=== PATIENT | female | born 1960 | race Caucasian/White ===

== ENCOUNTER → 2017-10-12 11:40 | Outpatient (CLI) | payer BC, MEDICARE, SELFPAY ==
--- NOTE | 2017-10-12 11:49 | XR_ITS ---
XR knee RT 3V HISTORY: ITS.REASON: RT KNEE PAIN ORDERING PHYSICIAN: Nayana Goldberg PATIENT AGE: 57 years COMPARISON: None FINDINGS: There is a linear area of sclerosis involving the intramedullary region of the distal femur and could be a prior intramedullary parvez tract.. There is transverse slight increased density in the distal femur probably related to prior screw hole artifact. There is very slight decrease in the joint space medially which may be seen with early osteoarthritis. The knee otherwise has an unremarkable appearance. IMPRESSION: 1. Slight decrease in joint space medially suggesting minimal osteoarthritis. 2. Probable old intramedullary parvez tract in the distal femur
--- NOTE | 2017-10-12 11:49 | XR_ITS ---
XR knee LT 3V HISTORY: ITS.REASON: LEFT KNEE PAIN ORDERING PHYSICIAN: Nayana Goldberg PATIENT AGE: 57 years COMPARISON: None FINDINGS: No fracture or dislocation. No lytic or blastic change. Normal mineralization. No significant arthritic changes evident. No other significant findings IMPRESSION: Negative Knee
== END ==
PROVIDERS: PCP Pediatrics; Visit Provider Nurse Practitioner Family
DX: M25.561 Pain in right knee (principal); M25.562 Pain in left knee
CPT/HCPCS: 73562

== ENCOUNTER → 2017-10-31 13:58 | Outpatient (CLI) | payer BC, SELFPAY ==
--- NOTE | 2017-10-31 14:05 | XR_ITS ---
XR wrist RT 2V HISTORY ITS.REASON: RT WRIST PAIN ORDERING PHYSICIAN: Dheeraj Franklin PATIENT AGE: 57 years Comparison: None FINDINGS: No fracture or dislocation. No lytic or blastic change. There is normal mineralization.. The joint spaces are well-preserved. No significant degenerative/arthritic changes. No erosive changes evident.. Bony hypertrophic changes are present involving the mid aspect of the radius and could be due to an old injury. Please correlate clinically. IMPRESSION: 1. Negative right wrist. 2. Suspect old midshaft radial fracture
== END ==
PROVIDERS: PCP Pediatrics; Visit Provider Pediatrics
DX: M25.531 Pain in right wrist (principal)
CPT/HCPCS: 73100

== ENCOUNTER → 2018-01-31 09:21 | Outpatient (CLI) | payer BC, SELFPAY ==
--- NOTE | 2018-01-31 09:25 | US_ITS ---
US liver HISTORY: ITS.REASON: LIVER MASS ORDERING PHYSICIAN: Lc Corbett MD PATIENT AGE: 57 years COMPARISON: None FINDINGS: INDICATION is liver mass seen on outside MRI which is not available for review at the time of this reading. Addendum may be added if that exam or report is made available. There is an oval subcapsular fluid collection in the right hepatic lobe measuring 2 x 3.5 cm have an a cystic appearance. No other liver lesions are evident. The common bile duct is slightly prominent at 7 mm. Patient however has had a prior cholecystectomy. There is appropriate directional blood flow within the portal vein. Images of the right kidney are unremarkable. IMPRESSION: Subcapsular cystic fluid collection at 3.5 x 2.2 cm in the right hepatic lobe laterally. This could be due to a subcapsular cyst or even resolving hematoma.
== END ==
PROVIDERS: Family Provider Pediatrics; PCP Pediatrics; Visit Provider Surgery
DX: R16.0 Hepatomegaly, not elsewhere classified (principal)
CPT/HCPCS: 76705

== ENCOUNTER → 2018-10-17 13:40 | Outpatient (CLI) | payer MEDICARE, BC, SELFPAY ==
--- NOTE | 2018-10-17 13:48 | XR_ITS ---
XR ribs LT min 3V w CXR1V HISTORY: Fall with left-sided chest rib pain ITS.REASON: CONTUSION LT SIDE S/P FALL ORDERING PHYSICIAN: Navi Hines MD PATIENT AGE: 58 years Comparison: None FINDINGS: A frontal view of the chest shows no acute finding. Multiple views of the Left ribs were obtained. No acute fracture or dislocation. No lytic or blastic change. There are old fractures of the left seventh ribs laterally. Bone plate is present along the lower cervical spine. IMPRESSION: No acute fracture apparent. If pain persists, consider follow-up exam in 7-[address] with 3-D reformats.
== END ==
PROVIDERS: PCP Family Medicine; Visit Provider Family Medicine
DX: S20.212A Contusion of left front wall of thorax, initial encounter (principal)
CPT/HCPCS: 71101

== ENCOUNTER → 2018-12-19 14:31 | Outpatient (CLI) | payer MEDICARE, BC, SELFPAY ==
--- NOTE | 2018-12-19 14:41 | XR_ITS ---
XR humerus LT CLINICAL INDICATION: Follow-up fracture ITS.REASON: patient needs to be standing; humerus fx ORDERING PHYSICIAN: George Mckeon MD PATIENT AGE: 58 years Comparison: 12/08/2018 FINDINGS: There is a cast present in the superior aspect of the cast is at the medial region. There is a complete mid shaft humeral fracture which is displaced. There is 17 mm anterior and 14 mm medial displacement of the distal fracture fragment. There is 0% bony apposition and no callous formation. IMPRESSION: Nondisplaced mid shaft humeral fracture
== END ==
PROVIDERS: PCP Family Medicine; Visit Provider Orthopaedic Surgery
DX: S42.302A Unspecified fracture of shaft of humerus, left arm, initial encounter for closed fracture (principal)
CPT/HCPCS: 73060

== ENCOUNTER → 2018-12-26 13:56 | Outpatient (CLI) | payer MEDICARE, BC, SELFPAY ==
--- NOTE | 2018-12-26 13:59 | XR_ITS ---
PROCEDURE: XR HUMERUS LT CLINICAL INDICATION: left humerus fx; in cast; see comment follow-up fracture COMPARISON: None available FINDINGS: Complete transverse midshaft humeral fracture is noted with minimal medial angulation of the distal fracture fragment and minimal medial displacement of the distal fracture fragment. There is 1 centimeter anterior displacement of the distal fracture fragment IMPRESSION: Mildly displaced midshaft humeral fracture Dictated by: Indra Morley MD 12/26/2018 14:29 Signed by: <Electronically signed by Indra Morley MD in [place]> 12/26/2018 14:29
== END ==
PROVIDERS: PCP Family Medicine; Visit Provider Orthopaedic Surgery
DX: S42.302A Unspecified fracture of shaft of humerus, left arm, initial encounter for closed fracture (principal)
CPT/HCPCS: 73060

== ENCOUNTER → 2019-01-02 15:02 | Outpatient (CLI) | payer MEDICARE, BC, SELFPAY ==
--- NOTE | 2019-01-02 15:05 | XR_ITS ---
PROCEDURE: XR HUMERUS LT CLINICAL INDICATION: left humerus fracture; cam shell brace applied Pain, fracture COMPARISON: XR HUMERUS LT from 12/26/2018 FINDINGS: Mildly displaced midshaft humeral fracture once again noted with mild medial angulation and medial displacement of the distal fracture fragment. Callus formation is developing. There may be slightly greater medial displacement. IMPRESSION: Healing displaced midshaft humeral fracture Dictated by: Indra Morley MD 01/02/2019 15:29 Signed by: <Electronically signed by Indra Morley MD in [place]> 01/02/2019 15:29
== END ==
PROVIDERS: PCP Family Medicine; Visit Provider Orthopaedic Surgery
DX: S42.302A Unspecified fracture of shaft of humerus, left arm, initial encounter for closed fracture (principal)
CPT/HCPCS: 73060

== ENCOUNTER 2019-01-02 15:20 | Outpatient (RCR) | payer BC, MEDICARE, SELFPAY | END 2019-01-02 15:45 | disposition home or self-care (01) | LOC: PT 15:20 | PROVIDERS: Visit Provider Orthopaedic Surgery | DX: S42.302A Unspecified fracture of shaft of humerus, left arm, initial encounter for closed fracture (principal) ==

== ENCOUNTER → 2019-01-09 14:17 | Outpatient (CLI) | payer MEDICARE, BC, SELFPAY ==
--- NOTE | 2019-01-09 14:21 | XR_ITS ---
PROCEDURE: XR HUMERUS LT CLINICAL INDICATION: left humerus fracture Humerus fracture COMPARISON: XR HUMERUS LT from 01/02/2019 FINDINGS: There is a healing midshaft humeral fracture with mild medial angulation and 13 mm anterior displacement of the distal fracture fragment. Increasing callus formation is present. IMPRESSION: Healing mid shaft displaced humeral fracture Dictated by: Indra Morley MD 01/09/2019 17:06 Signed by: <Electronically signed by Indra Morley MD in [place]> 01/09/2019 17:06
== END ==
PROVIDERS: PCP Family Medicine; Visit Provider Orthopaedic Surgery
DX: S42.302A Unspecified fracture of shaft of humerus, left arm, initial encounter for closed fracture (principal)
CPT/HCPCS: 73060

== ENCOUNTER → 2019-01-23 13:29 | Outpatient (CLI) | payer MEDICARE, BC, SELFPAY ==
--- NOTE | 2019-01-23 13:35 | XR_ITS ---
PROCEDURE: XR HUMERUS LT CLINICAL INDICATION: follow up left humerus fracture COMPARISON: XR HUMERUS LT from 12/26/2018 XR HUMERUS LT from 01/02/2019 XR HUMERUS LT from 01/09/2019 FINDINGS: There is a healing mid shaft humeral fracture. There is overlying callus formation and mild medial angulation of the distal fracture fragment. There is anterior displacement of the distal fracture fragment by approximately 17 mm. IMPRESSION: Healing displaced midshaft humeral fracture not significantly changed Dictated by: Indra Morley MD 01/23/2019 14:40 Electronically signed by Indra Morley MD in [place] 01/23/2019 14:40
== END ==
PROVIDERS: PCP Family Medicine; Visit Provider Orthopaedic Surgery
DX: S42.302A Unspecified fracture of shaft of humerus, left arm, initial encounter for closed fracture (principal)
CPT/HCPCS: 73060

== ENCOUNTER → 2019-03-06 14:02 | Outpatient (CLI) | payer MEDICARE, BC, SELFPAY ==
--- NOTE | 2019-03-06 14:08 | XR_ITS ---
PROCEDURE: XR HUMERUS LT CLINICAL INDICATION: follow up left humerus fracture Follow-up fracture COMPARISON: XR HUMERUS LT from 12/26/2018 XR HUMERUS LT from 01/02/2019 XR HUMERUS LT from 01/09/2019 XR HUMERUS LT from 01/23/2019 FINDINGS: There is a healing mid shaft fracture involving the left humerus. There is mild medial angulation of the distal fracture fragment of 24 degrees. There is 13 mm anterior to medial displacement of the distal fracture fragment unchanged. Callus formation is increasing compared to the previous study. Other findings:None. IMPRESSION: Healing mid shaft humeral fracture with mild displacement and medial angulation of the distal fracture fragment Dictated by: Indra Morley MD 03/06/2019 15:55 Electronically signed by Indra Morley MD in [place] 03/06/2019 15:55
== END ==
PROVIDERS: PCP Family Medicine; Visit Provider Orthopaedic Surgery
DX: S42.302A Unspecified fracture of shaft of humerus, left arm, initial encounter for closed fracture (principal)
CPT/HCPCS: 73060

== ENCOUNTER → 2020-05-28 12:51 | Outpatient (CLI) | payer OTHER, SELFPAY ==
--- NOTE | 2020-05-28 12:54 | MR_ITS ---
PROCEDURE: MR LUMBAR SPINE WO CON CLINICAL INDICATION: LUMBAGO WITH SCIATICA hx lumbar surgery 2007. lt sided lbp with lt leg pain. x2wks. no injury. COMPARISON: CT LSWO CT LUMBAR SPINE W/O CONTRAST from 05/29/2015 TECHNIQUE: Standard multiplanar multiecho sequences are performed without contrast. 3-D MIP and myelographic images are also rendered and reviewed FINDINGS: There is normal alignment. The spinal cord ends at the L1 level. L1-L2: Unremarkable. L2-L3: Unremarkable. L3-L4: Unremarkable. L4-5: Bulging disc which is slightly eccentric toward the left with minimal left foraminal disc protrusion. There is mild facet and ligamentum hypertrophy with mild left lateral recess narrowing and moderate left-sided foraminal narrowing. There are postsurgical changes at this level with artifact at the spinous process region at L4 and L5. Please correlate with patient's type of surgical history. L5-S1: Unremarkable. There is patchy areas of increased T2 signal involving the sacrum on both the right and left aspect. This is incompletely imaged consistent with edema possibly due to insufficiency fractures. There is cortical irregularity involving the S2 segment superiorly. Increased T2 signal involves the inferior aspect of S1 and superior aspect of S2. This is suspicious for fracture the superior aspect of the S2 segment with some impaction. IMPRESSION: 1. Bulging disc at L4-5 which is slightly eccentric toward the left with minimal left foraminal disc protrusion. There is mild facet and ligamentum hypertrophy with mild left lateral recess narrowing and moderate left-sided foraminal narrowing. There are postsurgical changes at this level with artifact at the spinous process region at L4 and L5. Please correlate with patient's type of surgical history 2. There is patchy areas of increased T2 signal involving the sacrum on both the right and left aspect. This is incompletely imaged consistent with edema possibly due to insufficiency fractures. There is cortical irregularity involving the S2 segment superiorly. Increased T2 signal involves the inferior aspect of S1 and superior aspect of S2. This is suspicious for fracture the superior aspect of the S2 segment with some impaction. High-resolution CT of the sacrum and coccyx may provide further evaluation and confirm the presence of insufficiency fractures. Dictated by: Indra Morley MD 05/30/2020 08:36 Indra Morley MD in [place] 05/30/2020 08:36
== END ==
PROVIDERS: PCP Nurse Practitioner Family; Visit Provider Nurse Practitioner Family
DX: M54.42 Lumbago with sciatica, left side (principal); M54.41 Lumbago with sciatica, right side; Z98.890 Other specified postprocedural states
CPT/HCPCS: 72148; 76376

== ENCOUNTER → 2022-10-29 15:10 | Outpatient (CLI) | payer MEDICARE, SELFPAY ==
--- NOTE | 2022-10-29 15:15 | XR_ITS ---
FINAL REPORT CLINICAL HISTORY: 30lb unintentional weight loss over 3 mos. 0 chest complaints, hx asthma, smoker. COMPARISON: None FINDINGS: Two views of the chest were obtained. The heart size and pulmonary vascularity are within normal limits. The mediastinum is normal. There is hyperinflation of the lungs consistent with COPD. There is mild bronchitis. Mild scarring is noted at the left lung base.. There is no pneumothorax. The bony thorax is intact. There are postoperative changes in lower cervical spine. IMPRESSION: Mild bronchitis. Reviewed, Interpreted and Dictated by Nash Berg III, MD Transcribed by Linda Ruth Authenticated and [facility]
== END ==
LOC: RAD 15:10
PROVIDERS: PCP Internal Medicine; Visit Provider Internal Medicine
DX: F17.200 Nicotine dependence, unspecified, uncomplicated (principal)
CPT/HCPCS: 71046

== ENCOUNTER 2022-11-24 11:13 | Day surgery (SDC) | payer MEDICARE, SELFPAY ==
[2022-11-01 14:06] VITALS: BMI 14.3
[2022-11-24 12:15] VITALS: BP 135/63; PULSE 75; RESP 17; TEMP 36.6; O2SAT 96
--- NOTE | 2022-11-24 12:38 | [facility].SCOPE ---
Procedure: Date: 11/24/22 Patient Date of :: 1960 Procedure Performed:: Colonoscopy Indications:: Weight loss Performing Provider:: Sushil Reynolds MD Referring Provider:: Michael Serrano DO Sedation:: See RN records Procedure:: After placing the patient in the left lateral decubitus position, the colonoscopy was gently inserted into the rectum and under direct visualization advanced to the cecum which was identified by transillumination in the right lower quadrant, identification of the ileocecal valve, appendiceal orifice, and cecal strap. Color, texture, mucosa, and anatomy of the colon were carefully examined with the scope. Findings:: Anal canal: normal Rectum: hemorrhoids Sigmoid colon: diverticulosis Descending colon: normal without polyps or inflammatory changes Splenic flexure: normal Transverse colon: normal without polyps or inflammatory changes Hepatic flexure: normal Ascending colon: normal without polyps or inflammatory changes Cecum: normal Terminal ileum: not visualized Impression: Sigmoid diverticulosis The patient has a very tortuous colon. Most angulation was noted within the sigmoid colon. An EGD scope was used to complete procedure to cecum. Recommendations:: Higher fiber diet Follow up with referring provider Complications:: None Estimated blood obtained (mL): 0 Colonoscopy Component Colonoscopy Component Was a colonoscopy performed during today's procedure?: Yes Recommended follow up colonoscopy of at least 10 years?: Yes
[2022-11-24 13:29] VITALS: O2SAT 96
--- NOTE | 2022-11-24 14:15 | HMH.SCOPE ---
Procedure: Date: 11/24/22 Patient Date of :: 1960 Procedure Performed:: EGD Indications:: Weight loss Performing Provider:: Sushil Reynolds MD Referring Provider:: Michael Serrano DO Sedation:: See RN records Procedure:: The gastroscope was gently passed through the incisoral orifice into the oral cavity and under direct visualization the esophagus was intubated. The endoscope was passed down the esophagus, through the stomach, and into the duodenum. Color, texture, mucosa, and anatomy of the esophagus, stomach, and duodenum were carefully examined with the scope. Findings:: Oropharynx: normal Esophagus: normal EG Junction: intact at 40 cm Cardia: small hiatal hernia Fundus: normal Body: Gastritis. Biopsy obtained Antrum: Gastritis. Biopsy obtained Duodenal bulb: Duodenitis. Mucosa with adenomatous appearance that was diffusely spread. Biopsies obtained Duodenum (second and third portion): normal Impression: Small hiatal hernia Gastritis Duodenitis Recommendations:: Await pathology results Move forward to colooscopy for evaluation of weight loss Complications:: None Estimated blood obtained (mL): 0 Colonoscopy Component Colonoscopy Component Was a colonoscopy performed during today's procedure?: No
[2022-11-24 14:18] VITALS: BP 141/80; PULSE 70; RESP 14; TEMP 36.7; O2SAT 100
[2022-11-24 14:28] VITALS: BP 148/89; PULSE 74; RESP 16; O2SAT 98
[2022-11-24 14:38] VITALS: BP 116/81; PULSE 71; RESP 16; O2SAT 97
[2022-11-24 14:48] VITALS: BP 128/77; PULSE 67; RESP 16; O2SAT 97
--- NOTE | 2022-11-24 15:25 | P.PN_ITS ---
[facility] Disclaimer: The information contained in this section may have been updated after the patient was seen, as this information can be updated by other users. Medical History Arthritis History of arm fracture History of heart attack Hx of fracture of femur Surgical History History of back surgery History of total right hip replacement Hx of neck surgery Hx of tonsillectomy Family History Other Family history of TIAs Social History Smoking Status: Current every day smoker tobacco type: cigarettes packs per day: 2 pack-years: 30 alcohol intake: current substance use type: former substance user, opiates, painkillers and prescription drug current occupational status: disabled Travel in the last 8 weeks: None household members: none housing: house lives independently: Yes marital status: single education level: college service: No caffeine: Yes special huy needs: No do you feel safe at home: Yes victim of physical abuse: No victim of emotional abuse: No victim of sexual abuse: No would you like helpful sources: No [facility] Anesthesia Checklist Patient Identification Patient Identification: Arm Band and Family Structural Data Admitted From: Home Planned Operative Procedure/s: EGE, Colonoscopy Consent for Planned Operative Procedure(s) Verified: Yes Verified Documents: Surgical Consent and History and Physical NPO Status Verified Time NPO: 00:00 Additional verifications Patient : No Anesthesia Reactions: No Hx Blood Transfusions: No Blood Transfusion Reaction: No Cephalosporin Allergy: No Previous Colonoscopy: Yes Cardiovascular Assessment Peripheral Edema: No Airway Assessment C-Spine Mobility Assessed: Yes TMJ Mobility Assessed: Yes Dentition: Edentulous Neurological Assessment Level of Consciousness: Awake, Alert, Appropriate and Follows Commands Hx Seizures: No Numbness or tingling in extremities: No Anesthesia Plan Anesthesia Risk discussed: Yes ASA Class: II Anesthesia Type: MAC
--- NOTE | 2022-11-24 15:29 | P.PN_ITS ---
[facility] Disclaimer: The information contained in this section may have been updated after the patient was seen, as this information can be updated by other users. Medical History Arthritis History of arm fracture History of heart attack Hx of fracture of femur Surgical History History of back surgery History of total right hip replacement Hx of neck surgery Hx of tonsillectomy Family History Other Family history of TIAs Social History Smoking Status: Current every day smoker tobacco type: cigarettes packs per day: 2 pack-years: 30 alcohol intake: current substance use type: former substance user, opiates, painkillers and prescription drug current occupational status: disabled Travel in the last 8 weeks: None household members: none housing: house lives independently: Yes marital status: single education level: college service: No caffeine: Yes special huy needs: No do you feel safe at home: Yes victim of physical abuse: No victim of emotional abuse: No victim of sexual abuse: No would you like helpful sources: No [facility] Anesthesia Checklist Patient Identification Patient Identification: Arm Band and Family Structural Data Admitted From: Home Planned Operative Procedure/s: EGD, Colonoscopy Verified Documents: Surgical Consent and History and Physical NPO Status Verified Time NPO: 00:00 Additional verifications Patient : No Anesthesia Reactions: No Hx Blood Transfusions: No Blood Transfusion Reaction: No Cephalosporin Allergy: No Previous Colonoscopy: Yes Airway Assessment C-Spine Mobility Assessed: Yes TMJ Mobility Assessed: Yes Dentition: Edentulous Neurological Assessment Level of Consciousness: Awake, Alert, Appropriate and Follows Commands Hx Seizures: No Numbness or tingling in extremities: No Anesthesia Plan Anesthesia Risk discussed: Yes ASA Class: II
== END 2022-11-24 15:00 | disposition home or self-care (01) ==
PROVIDERS: PCP Internal Medicine; Visit Provider Internal Medicine
PROC: 0DJ08ZZ Inspection of Upper Intestinal Tract, Via Natural or Artificial Opening Endoscopic (ICD-10-PCS; CPT 43235; principal; 2022-11-24 12:00)
DX: R63.4 Abnormal weight loss (principal); K57.30 Diverticulosis of large intestine without perforation or abscess without bleeding; K56.2 Volvulus; K64.8 Other hemorrhoids; K44.9 Diaphragmatic hernia without obstruction or gangrene; K29.70 Gastritis, unspecified, without bleeding; K29.80 Duodenitis without bleeding
CPT/HCPCS: 43239; 45378; 88305; J2704

== ENCOUNTER 2023-10-13 10:16 | Outpatient (CLI) | payer MEDICARE, SELFPAY ==
[2023-10-13 19:02] LABS: Basophils # 0.2 K/mm3 (0-0.2); Basophils % 1.9 % (0.1-2.0); Eosinophils # 0.3 K/mm3 (0.0-0.4); Eosinophils % 3.3 % (0.1-12.0); Hemoglobin 12.3 g/dL (12.2-16.2); Lymphocytes # 3.6 K/mm3 (0.7-4.5); Lymphocytes % 41.6 % (10-50); Mean Corpuscular HGB Conc 32.3 g/dL (31.8-35.4); Mean Corpuscular Volume 105.3 fl (81-99); Mean Platelet Volume 9.4 fl (7.4-10.4); Monocytes # 0.5 K/mm3 (0.1-1.0); Monocytes % 5.5 % (1.7-9.3); Neutrophils # 4.1 K/mm3 (1.8-7.8); Neutrophils % 47.8 % (37.0-80.0); Platelet Count 395 K/mm3 (142-424); Red Blood Count 3.61 M/mm3 (4.20-5.40); Red Cell Distribution Width 15.1 % (11.5-17.5); White Blood Count 8.6 K/mm3 (4.8-10.8)
[2023-10-13 19:23] LABS: Alanine Aminotransferase 14 U/L (12-78); Albumin Level 3.6 g/dl (3.5-5.0); Albumin/Globulin Ratio 1.4 (1.1-1.8); Alkaline Phosphatase 65 U/L (38-126); Aspartate Amino Transferase 23 U/L (14-36); Bilirubin,Total 0.5 mg/dl (0.2-1.3); Blood Urea Nitrogen 7 mg/dl (7-17); Calcium 9.4 mg/dl (8.4-10.2); Carbon Dioxide 33 mmol/L (22.0-30.0); Chloride 100 mmol/L (98-107); Chol/HDL Ratio 2.5 (1-3.5); Cholesterol 153 mg/dl (140-200); Estimated Glomerular Filt Rate 101 ml/min (>60); GFR (African American) 123 ML/MIN (>60); Globulin 2.6 g/dL (1.3-3.2); Glucose 51 mg/dl (74-100); HDL Cholesterol 61 mg/dl (40-60); Sodium 138 mmol/L (136-145); Total Protein,Serum 6.2 g/dl (6.3-8.2); Triglycerides 102 mg/dl (30-150); VLDL Cholesterol 20 mg/dL (0-40)
[2023-10-13 19:39] LABS: Hemoglobin A1C 4.9 % (4.0-6.0)
[2023-10-13 19:44] LABS: C-Reactive Protein 0.8 mg/L (0-4); Direct LDL Cholesterol 90.34 mg/dL (100-129)
[2023-10-13 19:48] LABS: 25-OH Vitamin D, Total > 126 ng/mL (30-100)
[2023-10-13 20:00] LABS: Erythrocyte Sedimentation Rate 20 mm/hr (0-30)
[2023-10-13 20:32] LABS: Vitamin B12 376 pg/mL (239-931)
[2023-10-15 08:17] LABS: HBsAg Screen Negative (Negative); HCV Ab Non Reactive (Non Reactive); Hep A Ab, IGM Negative (Negative); Hep B Core Ab, IgM Negative (Negative)
== END 2023-10-13 23:59 | disposition home or self-care (01) ==
LOC: LAB.DROPOF 10-15 10:16
PROVIDERS: PCP Internal Medicine; Visit Provider Internal Medicine
DX: R53.83 Other fatigue (principal); E55.9 Vitamin D deficiency, unspecified; R73.09 Other abnormal glucose; E78.5 Hyperlipidemia, unspecified
CPT/HCPCS: 80053; 80061; 80074; 82306; 82607; 82746; 83036; 85025; 85651; 86140

== ENCOUNTER 2023-10-24 16:07 | Emergency (ER) | payer MEDICARE, SELFPAY ==
[2023-10-24 16:08] VITALS: BP 110/62; PULSE 82; RESP 18; TEMP 36.6; O2SAT 99; BMI 12.9
--- NOTE | 2023-10-24 16:08 | ED_ITS ---
<Statement entered by Mitchell Flaherty MD - 10/24/23 21:23> I was consulted by the YAYO, and we discussed the complexity of the problems being addressed. I approved the treatment and management plan for this patient's care in the emergency department, thus performing a substantive portion of the medical decision making. Mitchell Flaherty MD Discharge Plan Disposition Patient Disposition: Home, Self-Care Condition: Good Prescriptions Prescriptions: No Action diazepam 5 mg tablet 2.5 mg PO TID PRN (Reason: anxiety) 30 Days Qty: 45 0RF venlafaxine 150 mg capsule,extended release 24hr 300 mg PO DAILY Qty: 60 2RF megestrol 400 mg/10 mL (40 mg/mL) suspension 100 mg PO QID Qty: 480 2RF montelukast 10 mg tablet 10 mg PO oxycodone 10 mg tablet 10 mg PO QID PRN (Reason: pain) 30 Days Qty: 120 0RF magnesium citrate Solution 150 ml PO BID PRN (Reason: constipation) Qty: 296 0RF lidocaine HCl 2 jelly 2 ml topical BID Probiotic 3 billion cell Capsule 3,000 mmu cells PO DAILY Rx Instructions: administer with a meal Referrals Follow up/Referrals: Michael Serrano DO [Primary Care Provider] - See instructions Activity Restrictions/Add. Instructions Additional Instructions/Restrictions: Follow-up with your PCP tomorrow for your chronic pain medication. Follow-up with your PCP as well as for as undetermined significance of the lesion of your liver. Return to ER as needed for worsening signs and symptoms. Clinical Impressions Clinical Impression: Obstipation, Lesion of liver Discharge ED Provider: Mitchell Flaherty General Adult HPI General Chief complaint: PAIN Stated complaint: Constipated Time Seen by Provider: 10/24/23 16:08 History of Present Illness HPI narrative: Patient presents for initially a chief complaint of not being able to. And abdominal pain. Patient states that she has not had a bowel movement in approximately a week. She is a several decade long user of opiates for chronic pain. She does not go to pain management and it is managed by her PCP. Patient initially told me that she felt like something had fallen out of her rectum however on clarification she states that it feels like something is in her rectum that needs to come out and cannot. She denies chest pain fever chills hemoptysis hematochezia melena nausea vomiting diarrhea. Patient is tolerating oral intake and passing flatus Related Data Home Medications Medication Instructions Recorded Confirmed lidocaine HCl 2 % mucosal jelly 2 ml topical BID Pain 12/08/18 10/13/23 lactobacillus combination no.4 3 3,000 mmu cells PO DAILY digestion 11/01/22 10/13/23 billion cell capsule (Probiotic) montelukast 10 mg tablet 10 mg PO 09/30/23 10/13/23 Previous Rx's Medication Instructions Recorded diazepam 5 mg tablet 2.5 mg (1/2 x 5 mg) PO TID PRN 10/13/23 anxiety 30 days #45 tabs megestrol 400 mg/10 mL (40 mg/mL) 100 mg (2.5 mL) PO QID #480 mL 10/13/23 oral suspension venlafaxine 150 mg 300 mg (2 x 150 mg) PO DAILY #60 10/13/23 capsule,extended release 24 hr caps oxycodone 10 mg tablet 10 mg PO QID PRN pain 30 days #120 10/18/23 tabs magnesium citrate 150 ml PO BID PRN constipation 10/24/23 #296 mL Allergies Allergy/AdvReac Type Severity Reaction Status Date / Time latex [LATEX] Allergy Unknown I-RASH Verified 10/13/23 14:11 morphine Allergy Unknown UNKOWN Verified 10/13/23 14:11 promethazine [From PHENERGAN] Allergy Unknown SICK Verified 10/13/23 14:11 Sulfa (Sulfonamide Allergy Unknown SICK Verified 10/13/23 14:11 Antibiotics) [SULFA (SULFONAMIDE ANTIBIOTICS)] Penicillins Allergy Verified 10/24/23 16:15 NSAIDS (Non-Steroidal AdvReac Mild Nausea Verified 10/13/23 14:11 Anti-Inflamma ADHESIVES Allergy Unknown I-RASH Uncoded 10/13/23 14:11 [facility] Disclaimer: The information contained in this section may have been updated after the patient was seen, as this information can be updated by other users. Medical History Pain of right hip Chronic low back pain Right arm pain Cigarette nicotine dependence Chronic, continuous use of opioids Asthma stable, without complaint, no longer uses inhaler Chronic pain Cachexia History of heart attack History of arm fracture right Hx of fracture of femur has parvez Arthritis Surgical History History of cholecystectomy Hx of neck surgery History of back surgery History of total right hip replacement Hx of tonsillectomy Family History Other Family history of TIAs Social History Smoking Status: Current every day smoker tobacco type: cigarettes packs per day: 2 alcohol intake: current alcohol intake frequency: 0-2 drinks per day substance use type: former substance user, opiates, painkillers and prescription drug current occupational status: disabled Travel in the last 8 weeks: None household members: none housing: house lives independently: Yes marital status: single education level: college service: No caffeine: Yes special huy needs: No do you feel safe at home: Yes victim of physical abuse: No victim of emotional abuse: No victim of sexual abuse: No would you like helpful sources: No ROS Obtained: Yes Systems reviewed as appropriate & no additional complaints except as documented Physical Exam General General appearance: alert and in no apparent distress Respiratory Respiratory exam: Present normal lung sounds bilaterally Cardiovascular Cardiovascular exam: Present regular rate and normal rhythm Abdominal Exam Abdominal exam: Present soft, tenderness (Mildly diffusely to palpation) and normal bowel sounds; Absent guarding, rebound or rigidity Neurological Exam Neurological exam: Present alert and oriented X3 Medical Decision Making Medical Records Medical records reviewed: Yes I reviewed the patient's medical records. Gus Inquiry Pt receiving controlled substance: No Vital Signs: 10/24/23 16:08 10/24/23 18:09 Temperature 97.9 F Temperature Source Oral Pulse Rate 70 Pulse Rate [Radial] 82 Respiratory Rate 18 Blood Pressure 142/59 H Blood Pressure [Right Arm] 110/62 Blood Pressure Mean [Right Arm] 78 Blood Pressure Source [Right Arm] Automatic Cuff Blood Pressure Position [Right Arm] Sitting 02 Sat by Pulse Oximetry 99 99 Oxygen Delivery Method Room Air Room Air Lab Data Lab results reviewed: Yes I reviewed the patient's lab results. Lab Results 10/24/23 16:53: WBC 9.7, RBC 3.86 L, Hgb 13.0, Hct 39.1, MCV 101.2 H, MCH 33.7 H , MCHC 33.3, RDW 15.3, Plt Count 457 H, MPV 8.5, Neut % (Auto) 63.0, Lymph % (Auto) 27.7, [place] % (Auto) 5.6, Eos % (Auto) 2.0, Baso % (Auto) 1.8, Neut # (Auto) 6.1, Lymph # (Auto) 2.7, [place] # (Auto) 0.5, Eos # (Auto) 0.2, Baso # (Auto) 0.2, Sodium 138, Potassium 3.7, Chloride 104, Carbon Dioxide 29, Anion Gap 8.7, BUN 11, Creatinine 0.60, Estimated Creat Clear 31, Estimated GFR 101, Est GFR ( Amer) 123, Glucose 90, Lactate 1.0, Calcium 9.1, Magnesium 2.5 H, Total Bilirubin 0.6, AST 33, ALT 22, Alkaline Phosphatase 78, Total Protein 6.7, Albumin 3.9, Globulin 2.8, Albumin/Globulin Ratio 1.4, Lipase 59 10/24/23 16:53 10/24/23 16:53 Orders (Tests/Meds): ED MEDICATIONS Discontinued Medications Generic Name Dose Route Start Last Admin Trade Name Freq PRN Reason Stop Dose Admin Acetaminophen 1,000 mg 10/24/23 16:23 10/24/23 17:11 Acetaminophen 1,000mg/100ml Vial IV 10/24/23 16:24 1,000 mg ONCE ONE Administration Lactated Ringer's 1,000 mls @ 999 mls/hr 10/24/23 16:23 10/24/23 17:12 Lactated Ringer's 1000 Ml Bag IV 10/24/23 17:23 999 mls/hr .Q1H1M ONE Administration Iopamidol 75 ml 10/24/23 18:00 10/24/23 18:01 Iopamidol-370 (76%);100ml Bottle IV 10/24/23 18:01 75 ml ONCE ONE Administration Ketorolac Tromethamine 15 mg 10/24/23 16:23 10/24/23 17:11 Ketorolac 30mg/Ml Vial IV 10/24/23 16:24 15 mg ONCE ONE Administration Sodium Chloride 10 ml 10/24/23 18:00 10/24/23 18:01 Sodium Chloride 0.9% 10ml Syr (Rad Only) IV 10/24/23 18:01 10 ml ONCE ONE Administration ORDERS Category Date Time Status CT abdomen pelvis w con Stat Cat Scan 10/24/23 16:23 Completed CBC w/Auto Diff [Complete Blood Count Auto Diff] Stat Lab 10/24/23 16:53 Completed CMP [Comprehensive Metabolic Panel] Stat Lab 10/24/23 16:53 Completed Lactic Acid Stat Lab 10/24/23 16:53 Completed Lipase Stat Lab 10/24/23 16:53 Completed Magnesium Stat Lab 10/24/23 16:53 Completed UA [Urinalysis and Microscopic] Stat Lab 10/24/23 16:24 Ordered Medical Decision Narrative: In summary patient is a 63-year-old female who presents to the emergency department for evaluation of inability to defecate. Patient is hemodynamically stable upon arrival, afebrile. Physical exam shows a significantly cachectic and protein calorie malnourished 63-year-old female who otherwise is in no acute distress. Patient has a benign abdominal exam with normal bowel sounds. Differential diagnosis includes constipation versus obstruction versus opioid- induced obstipation versus acute diverticulitis etc. Initial workup will be conducted with hematologic labs CT scan of the abdomen pelvis. Initial interventions include fluid bolus Toradol Tylenol. Initial workup reviewed by me shows that her hematologic labs are nonactionable and my informal review of her CT scan shows significant fecal impaction throughout the colon. Radiology identified a indeterminate lacunar lesion around the liver. Upon repeat evaluation I had an interactive discussion with the patient's findings thus far and via patient directed decision making I offered her option of enema versus manual disimpaction versus MiraLAX cleanse. Patient elected to decline all of those and will follow-up with her PCP tomorrow as she already has an appointment.. Given this patient is appropriate for discharge. Critical Care Critical Care Time Critical Care Time: No
--- NOTE | 2023-10-24 16:23 | CT_ITS ---
PROCEDURE INFORMATION: Exam: CT Abdomen And Pelvis With Contrast Exam date and time: 10/24/2023 6:00 PM Age: 63 years old Clinical indication: Abdominal pain; Generalized; Additional info: Abdominal pain, no bowel movement for a week TECHNIQUE: Imaging protocol: Computed tomography of the abdomen and pelvis with contrast. Radiation optimization: All CT scans at this facility use at least one of these dose optimization techniques: automated exposure control; mA and/or kV adjustment per patient size (includes targeted exams where dose is matched to clinical indication); or iterative reconstruction. Contrast material: ISOVUE; Contrast volume: 75 ml; Contrast route: IV; COMPARISON: No relevant prior studies available. FINDINGS: Limitations: Evaluation of intra-abdominal contents is limited by a paucity of intraperitoneal fat. Lungs: Scattered areas of bronchial wall thickening which are likely chronic inflammatory. A few areas of subpleural reticulation are noted, nonspecific. Liver: Low-density focus along the posterior right hepatic lobe measuring 3.3 x 1.4 cm is indeterminate, consider follow-up with nonemergent MRI. Gallbladder and bile ducts: The patient is status post cholecystectomy. Pancreas: Normal. Spleen: Normal. Adrenal glands: The adrenal glands appear normal. Kidneys and ureters: There are no soft tissue renal masses or hydronephrosis. Stomach and bowel: There is large volume stool throughout the colon. Appendix: No evidence of appendicitis. Intraperitoneal space: Unremarkable. Vasculature: There is atherosclerotic disease of the visualized aorta and its major branch vessels. Lymph nodes: No lymphadenopathy. Urinary bladder: There is moderate distention of the urinary bladder. Reproductive: No acute process. Bones/joints: There is diffuse degenerative disease of the visualized osseous structures. There is surgical hardware within the lumbar spine. Soft tissues: Unremarkable. Other findings: The patient is quite cachectic. [place] effect IMPRESSION: 1. Significant stool distension of the colon without obstruction identified. 2. Lenticular form low-density focus along the posterior right hepatic lobe measuring 3.3 x 1.4 cm is indeterminate, consider follow-up with nonemergent MRI.
[2023-10-24] MEDS: ACETAMINOPHEN 1,000MG/100ML VIAL 1000 MG IV (17:11)
[2023-10-24] MEDS: KETOROLAC 30MG/ML VIAL 15 MG IV (17:11)
[2023-10-24] MEDS: LACTATED RINGERS 1000ML 1,000 ML 999 ML IV (17:12)
[2023-10-24 17:14] LABS: Chloride 104 mmol/L (98-107); Potassium 3.7 mmoL/L (3.5-5.1); Sodium 138 mmol/L (136-145)
[2023-10-24 17:16] LABS: Alanine Aminotransferase 22 U/L (12-78); Aspartate Amino Transferase 33 U/L (14-36); Blood Urea Nitrogen 11 mg/dl (7-17); Creatinine Clearance Estimated 31 mL/min (50-200); Estimated Glomerular Filt Rate 101 ml/min (>60); GFR (African American) 123 ML/MIN (>60)
[2023-10-24 17:17] LABS: Albumin Level 3.9 g/dl (3.5-5.0); Albumin/Globulin Ratio 1.4 (1.1-1.8); Alkaline Phosphatase 78 U/L (38-126); Anion Gap 8.7 mEq/L (5-15); Bilirubin,Total 0.6 mg/dl (0.2-1.3); Calcium 9.1 mg/dl (8.4-10.2); Carbon Dioxide 29 mmol/L (22.0-30.0); Globulin 2.8 g/dL (1.3-3.2); Glucose 90 mg/dl (74-100); Lipase 59 U/L (23-300); Magnesium 2.5 mg/dl (1.6-2.3); Total Protein,Serum 6.7 g/dl (6.3-8.2)
[2023-10-24 17:18] LABS: Basophils # 0.2 K/mm3 (0-0.2); Basophils % 1.8 % (0.1-2.0); Eosinophils # 0.2 K/mm3 (0.0-0.4); Hematocrit 39.1 % (37.0-47.0); Lymphocytes # 2.7 K/mm3 (0.7-4.5); Lymphocytes % 27.7 % (10-50); Mean Corpuscular HGB Conc 33.3 g/dL (31.8-35.4); Mean Corpuscular Hemoglobin 33.7 pg (27.0-31.2); Mean Corpuscular Volume 101.2 fl (81-99); Mean Platelet Volume 8.5 fl (7.4-10.4); Monocytes # 0.5 K/mm3 (0.1-1.0); Monocytes % 5.6 % (1.7-9.3); Neutrophils # 6.1 K/mm3 (1.8-7.8); Platelet Count 457 K/mm3 (142-424); Red Blood Count 3.86 M/mm3 (4.20-5.40); Red Cell Distribution Width 15.3 % (11.5-17.5); White Blood Count 9.7 K/mm3 (4.8-10.8)
[2023-10-24] MEDS: SODIUM CHLORIDE 0.9% 10ML SYR (RAD ONLY) 10 ML IV (18:01)
[2023-10-24] MEDS: IOPAMIDOL-370 (76%);100ML BOTTLE 75 ML IV (18:01)
--- NOTE | 2023-10-24 18:03 | PC.NURSE ---
PT RETURNED FROM CT
[2023-10-24 18:09] VITALS: BP 142/59; PULSE 70; O2SAT 99
[2023-10-24 19:24] LABS: Microscopic, Urine URINE MICROSCOPIC (MICROSCOPIC)
[2023-10-24 19:26] LABS: Appearance,Urine CLEAR (Clear); Bilirubin,Urine Negative (Negative); Blood, Urine Negative (Negative); Glucose,Urine (UA) Negative (Negative); Ketones,Urine Negative (Negative); Leukocyte Esterase,Urine TRACE (Negative); Nitrate,Urine Negative (Negative); PH,Urine 7.5 (5.0-8.5); Protein,Urine Negative (Negative); Urobilinogen,Urine 0.2 EU/dl (0.2)
[2023-10-24 19:27] LABS: Color,Urine Yellow (Yellow)
[2023-10-24 19:33] VITALS: BP 142/59; PULSE 70; RESP 17; TEMP 36.6; O2SAT 99
[2023-10-24 19:44] LABS: Bacteria,Urine Trace /lpf; Squamous Epithelial Cell,Urine Occasional #/hpf (0-5)
== END 2023-10-24 19:34 | disposition home or self-care (01) ==
PROVIDERS: Physician Assistant; Emergency Provider Emergency Medicine; PCP Internal Medicine
DX: R10.817 Generalized abdominal tenderness (principal); K59.00 Constipation, unspecified; K76.9 Liver disease, unspecified; F17.210 Nicotine dependence, cigarettes, uncomplicated; F11.21 Opioid dependence, in remission
CPT/HCPCS: 74177; 80053; 81001; 83605; 83690; 83735; 85025; 96361; 96374; 96375; 99284; J0131; J1885; J7120; Q9967

== ENCOUNTER 2023-10-26 12:39 | Emergency (ER) | payer MEDICARE, SELFPAY ==
[2023-10-26 12:40] VITALS: BP 116/67; PULSE 79; RESP 15; TEMP 36.7; O2SAT 100; BMI 12.7
[2023-10-26 13:00] VITALS: BP 127/75; PULSE 74; O2SAT 93
--- NOTE | 2023-10-26 13:06 | ED_ITS ---
Discharge Plan Disposition Patient Disposition: Home, Self-Care Prescriptions Prescriptions: New bisacodyl [Dulcolax (bisacodyl)] 10 mg suppository 10 mg NH DAILY 2 Days Qty: 12 0RF No Action diazepam 5 mg tablet 2.5 mg PO TID PRN (Reason: anxiety) 30 Days Qty: 45 0RF venlafaxine 150 mg capsule,extended release 24hr 300 mg PO DAILY Qty: 60 2RF megestrol 400 mg/10 mL (40 mg/mL) suspension 100 mg PO QID Qty: 480 2RF montelukast 10 mg tablet 10 mg PO oxycodone 10 mg tablet 10 mg PO QID PRN (Reason: pain) 30 Days Qty: 120 0RF magnesium citrate Solution 150 ml PO BID PRN (Reason: constipation) Qty: 296 0RF Movantik 12.5 mg tablet 12.5 mg PO DAILY Qty: 30 2RF Rx Instructions: must be taken on empty stomach; no food 1 hr after or 2-3 hrs before dose lidocaine HCl 2 jelly 2 ml topical BID Probiotic 3 billion cell Capsule 3,000 mmu cells PO DAILY Rx Instructions: administer with a meal Referrals Follow up/Referrals: Michael Serrano DO [Primary Care Provider] - See instructions Activity Restrictions/Add. Instructions Additional Instructions/Restrictions: Please take your magnesium citrate continue to escalate your MiraLAX and take your Dulcolax suppositories as discussed. Clinical Impressions Clinical Impression: Constipation Instructions Patient Instructions: DI for Acute Abdominal Pain Discharge ED Provider: Lima Horton General Adult HPI General Chief complaint: Abdominal Pain Stated complaint: Constipated Time Seen by Provider: 10/26/23 12:51 Mode of Arrival: EMS Source of Information: Patient and EMS Limitations: No Limitations Description of Symptoms (Recalled from ER Triage Doc. by RN): pt presents to ED via [facility] for constipation and rectal pain. pt was seen in ED on tuesday for same issue. pt has been attempting to remove stool from rectum herself and now pain has worsened. History of Present Illness HPI narrative: Patient is a 63-year-old female present today with constipation. She states she is been dealing with this for extended period time she is chronically on MiraLAX and also takes Dulcolax at home but recently ran out of her Dulcolax and has not had a bowel movement in 1 week. Does have pain associated with this she is also on opiates which contributes to her chronic constipation. Related Data Home Medications Medication Instructions Recorded Confirmed lidocaine HCl 2 % mucosal jelly 2 ml topical BID Pain 12/08/18 10/13/23 lactobacillus combination no.4 3 3,000 mmu cells PO DAILY digestion 11/01/22 10/13/23 billion cell capsule (Probiotic) montelukast 10 mg tablet 10 mg PO 09/30/23 10/13/23 Previous Rx's Medication Instructions Recorded diazepam 5 mg tablet 2.5 mg (1/2 x 5 mg) PO TID PRN 10/13/23 anxiety 30 days #45 tabs megestrol 400 mg/10 mL (40 mg/mL) 100 mg (2.5 mL) PO QID #480 mL 10/13/23 oral suspension venlafaxine 150 mg 300 mg (2 x 150 mg) PO DAILY #60 10/13/23 capsule,extended release 24 hr caps oxycodone 10 mg tablet 10 mg PO QID PRN pain 30 days #120 10/18/23 tabs magnesium citrate 150 ml PO BID PRN constipation 10/24/23 #296 mL naloxegol 12.5 mg tablet (Movantik) 12.5 mg PO DAILY opioid induced 10/25/23 constipation #30 tabs bisacodyl 10 mg rectal suppository 10 mg NH DAILY 2 days #12 ea 10/26/23 (Dulcolax (bisacodyl)) Allergies Allergy/AdvReac Type Severity Reaction Status Date / Time latex [LATEX] Allergy Unknown I-RASH Verified 10/13/23 14:11 morphine Allergy Unknown UNKOWN Verified 10/13/23 14:11 promethazine [From PHENERGAN] Allergy Unknown SICK Verified 10/13/23 14:11 Sulfa (Sulfonamide Allergy Unknown SICK Verified 10/13/23 14:11 Antibiotics) [SULFA (SULFONAMIDE ANTIBIOTICS)] Penicillins Allergy Verified 10/24/23 16:15 NSAIDS (Non-Steroidal AdvReac Mild Nausea Verified 10/13/23 14:11 Anti-Inflamma ADHESIVES Allergy Unknown I-RASH Uncoded 10/13/23 14:11 [facility] Disclaimer: The information contained in this section may have been updated after the patient was seen, as this information can be updated by other users. Medical History Pain of right hip Chronic low back pain Right arm pain Cigarette nicotine dependence Chronic, continuous use of opioids Asthma stable, without complaint, no longer uses inhaler Chronic pain Cachexia History of heart attack History of arm fracture right Hx of fracture of femur has parvez Arthritis Surgical History History of cholecystectomy Hx of neck surgery History of back surgery History of total right hip replacement Hx of tonsillectomy Family History Other Family history of TIAs Social History Smoking Status: Current every day smoker tobacco type: cigarettes packs per day: 2 alcohol intake: current alcohol intake frequency: 0-2 drinks per day substance use type: former substance user, opiates, painkillers and prescription drug current occupational status: disabled Travel in the last 8 weeks: None household members: none housing: house lives independently: Yes marital status: single education level: college service: No caffeine: Yes special huy needs: No do you feel safe at home: Yes victim of physical abuse: No victim of emotional abuse: No victim of sexual abuse: No would you like helpful sources: No ROS Obtained: Yes All systems reviewed & no additional complaints except as documented Physical Exam General General appearance: alert and in no apparent distress Respiratory Respiratory exam: Present normal lung sounds bilaterally and respiratory distress Cardiovascular Cardiovascular exam: Present regular rate and normal rhythm Abdominal Exam Abdominal exam: Present soft; Absent distention or tenderness Neurological Exam Neurological exam: Present alert and oriented X3 Medical Decision Making Gus Inquiry Pt receiving controlled substance: No Vital Signs: 10/26/23 12:40 10/26/23 13:00 10/26/23 15:32 Temperature 98.1 F 98.1 F Temperature Source Oral Pulse Rate 74 70 Pulse Rate [Left Radial] 79 Respiratory Rate 15 16 Blood Pressure 127/75 121/70 Blood Pressure [Right Arm] 116/67 Blood Pressure Mean 91 Blood Pressure Mean [Right Arm] 83 02 Sat by Pulse Oximetry 100 93 L Oxygen Delivery Method Room Air Room Air Medical Decision Narrative: Cachectic 63-year-old female with chronic constipation presents today with worsening of her constipation. Will provide an enema and reassess. Patient unable to have a bowel movement in the ED after the enema. Serial abdominal exams are benign. She has home magnesium citrate she is on MiraLAX we will escalate this. She also was prescribed Dulcolax suppositories. No emergent medical condition identified she is advised to continue follow-up with primary care doctor regarding this. Critical Care Critical Care Time Critical Care Time: No
--- NOTE | 2023-10-26 14:08 | PC.NURSE ---
rounded on pt. requested blanket. no other needs at this time.
[2023-10-26 15:32] VITALS: BP 121/70; PULSE 70; RESP 16; TEMP 36.7; O2SAT 98
== END 2023-10-26 15:33 | disposition home or self-care (01) ==
PROVIDERS: Emergency Provider Student in an Organized Health Care Education/Training Program; PCP Internal Medicine
DX: K62.89 Other specified diseases of anus and rectum (principal); K59.03 Drug induced constipation; T40.2X5A Adverse effect of other opioids, initial encounter; F11.288 Opioid dependence with other opioid-induced disorder; F17.210 Nicotine dependence, cigarettes, uncomplicated
CPT/HCPCS: 99283

== ENCOUNTER 2023-11-30 08:39 | Outpatient (CLI) | payer MEDICARE, SELFPAY | END 2023-11-30 23:59 | disposition home or self-care (01) | LOC: LAB.DROPOF 12-02 08:40 | PROVIDERS: PCP Family Medicine; Visit Provider Family Medicine | DX: N39.0 Urinary tract infection, site not specified (principal) | CPT/HCPCS: 87086 ==

== ENCOUNTER 2024-01-31 14:58 | Outpatient (CLI) | payer MEDICARE, SELFPAY ==
[2024-01-31 20:46] LABS: Basophils # 0.1 K/mm3 (0-0.2); Basophils % 0.9 % (0.1-2.0); Eosinophils # 0.3 K/mm3 (0.0-0.4); Eosinophils % 2.8 % (0.1-12.0); Hematocrit 34.4 % (37.0-47.0); Hemoglobin 11.2 g/dL (12.2-16.2); Lymphocytes # 3.2 K/mm3 (0.7-4.5); Lymphocytes % 35.1 % (10-50); Mean Corpuscular HGB Conc 32.6 g/dL (31.8-35.4); Mean Corpuscular Hemoglobin 35.1 pg (27.0-31.2); Mean Corpuscular Volume 107.4 fl (81-99); Mean Platelet Volume 8.5 fl (7.4-10.4); Monocytes # 0.6 K/mm3 (0.1-1.0); Monocytes % 6.9 % (1.7-9.3); Neutrophils % 54.3 % (37.0-80.0); Platelet Count 457 K/mm3 (142-424); Red Cell Distribution Width 15.6 % (11.5-17.5); White Blood Count 9.1 K/mm3 (4.8-10.8)
[2024-01-31 20:50] LABS: Alanine Aminotransferase 12 U/L (12-78); Albumin Level 3.7 g/dl (3.5-5.0); Albumin/Globulin Ratio 1.3 (1.1-1.8); Alkaline Phosphatase 70 U/L (38-126); Anion Gap 7.2 mEq/L (5-15); Aspartate Amino Transferase 22 U/L (14-36); Bilirubin,Total 0.4 mg/dl (0.2-1.3); Blood Urea Nitrogen 18 mg/dl (7-17); Calcium 9.1 mg/dl (8.4-10.2); Carbon Dioxide 29 mmol/L (22.0-30.0); Chloride 105 mmol/L (98-107); Estimated Glomerular Filt Rate 85 ml/min (>60); GFR (African American) 103 ML/MIN (>60); Globulin 2.9 g/dL (1.3-3.2); Glucose 107 mg/dl (74-100); Potassium 4.2 mmoL/L (3.5-5.1); Sodium 137 mmol/L (136-145); Total Protein,Serum 6.6 g/dl (6.3-8.2)
[2024-01-31 21:30] LABS: Thyroid Stimulating Hormone 1.13 uIU/mL (0.465-4.68)
[2024-01-31 21:56] LABS: Free T4 (Free Thyroxine) 1.11 ng/dl (0.78-2.19)
== END 2024-01-31 23:59 | disposition home or self-care (01) ==
LOC: LAB.DROPOF 02-01 12:04
PROVIDERS: PCP Nurse Practitioner Acute Care; Visit Provider Nurse Practitioner Acute Care
DX: R31.9 Hematuria, unspecified (principal); F32.1 Major depressive disorder, single episode, moderate; F41.1 Generalized anxiety disorder; R44.3 Hallucinations, unspecified; R63.4 Abnormal weight loss
CPT/HCPCS: 80053; 84439; 84443; 85025; 87086

== ENCOUNTER 2024-02-08 13:02 | Outpatient (CLI) | payer MEDICARE, SELFPAY ==
--- NOTE | 2024-02-08 13:08 | CT_ITS ---
FINAL REPORT CLINICAL HISTORY: lung cancer screening 1 PPD X 30 YEARS COMPARISON: None FINDINGS: CT CHEST LOW DOSE SCREENING HISTORY: Screening exam for lung cancer. 64-year-old female, Current smoker, 30 pack year smoking history DOSE: CTDIvol: 2.9 mGy, DLP: 99.51 mGy*cm COMPARISON: None . TECHNIQUE: Axial CT without IV contrast administration using low dose protocol. This study was performed with techniques to keep radiation doses as low as reasonably achievable, (ALARA). Individualized dose reduction techniques using automated exposure control or adjustment of mA and/or kV according to the patient's size were employed. FINDINGS: No acute lung disease is present . No pulmonary lesions are seen suspicious for neoplasm. Changes of emphysema are present. There is bilateral lower lobe scarring present. There is mild bronchial wall thickening consistent with bronchitis. No pleural or pericardial effusion is seen . No adenopathy or mass lesion is present . IMPRESSION: Mild bronchial wall thickening consistent with bronchitis. No masses or nodules are identified. LUNG RADS CATEGORY 1 RECOMMENDATION: 12 month LDCT follow up Reviewed, Interpreted and Dictated by Aylin Monte MD Transcribed by Aga Vivas Authenticated and [facility]
--- NOTE | 2024-02-08 13:17 | XR_ITS ---
FINAL REPORT TECHNIQUE: Bone densitometry calculations of the lumbar spine and left hip were obtained. CLINICAL HISTORY: screening FINDINGS: Using 1/3 radius the bone mineral density of the radius is 0.461 g/cm2, corresponding to T-score of -3.9. Using the left hip, the bone mineral density of the femoral neck is 0.446 g/cm2, corresponding to a T-score of -4.1. NOTE: T-score: Standard deviation compared with peak bone mass of young adult mean. *Following the recommendations of the International Society of Bone densitometry, classification of hip BMD is based on the lower of two T-scores; total hip or femoral neck. IMPRESSION: Diminished bone mineral density consistent with osteoporosis. FRAX was not reported because some of the T-scores are at or below-2.5. Reviewed, Interpreted and Dictated by Aylin Monte MD Transcribed by Magaly Tinsley Authenticated and [facility]
== END 2024-02-08 23:59 | disposition home or self-care (01) ==
LOC: RAD 13:03
PROVIDERS: PCP Internal Medicine; Visit Provider Internal Medicine
DX: M81.0 Age-related osteoporosis without current pathological fracture (principal); Z87.891 Personal history of nicotine dependence
CPT/HCPCS: 71271; 77080

== ENCOUNTER 2024-02-24 10:10 | Outpatient (CLI) | payer MEDICARE, SELFPAY | END 2024-02-24 23:59 | disposition home or self-care (01) | LOC: LAB.DROPOF 02-25 10:22 | PROVIDERS: PCP Student in an Organized Health Care Education/Training Program; Visit Provider Student in an Organized Health Care Education/Training Program | DX: R09.81 Nasal congestion (principal); J30.89 Other allergic rhinitis | CPT/HCPCS: 87635 ==

== ENCOUNTER 2024-04-04 10:17 | Outpatient (CLI) | payer MEDICARE, SELFPAY ==
[2024-04-04 18:54] LABS: Basophils # 0.1 K/mm3 (0-0.2); Basophils % 0.8 % (0.1-2.0); Eosinophils # 0.3 K/mm3 (0.0-0.4); Eosinophils % 2.2 % (0.1-12.0); Hematocrit 32.7 % (37.0-47.0); Hemoglobin 11.3 g/dL (12.2-16.2); Lymphocytes # 3.3 K/mm3 (0.7-4.5); Lymphocytes % 30.2 % (10-50); Mean Corpuscular HGB Conc 34.6 g/dL (31.8-35.4); Mean Corpuscular Hemoglobin 34.6 pg (27.0-31.2); Mean Corpuscular Volume 100.1 fl (81-99); Mean Platelet Volume 8.3 fl (7.4-10.4); Monocytes # 0.8 K/mm3 (0.1-1.0); Monocytes % 6.8 % (1.7-9.3); Neutrophils # 6.6 K/mm3 (1.8-7.8); Neutrophils % 59.9 % (37.0-80.0); Platelet Count 453 K/mm3 (142-424); Red Blood Count 3.27 M/mm3 (4.20-5.40); Red Cell Distribution Width 15.2 % (11.5-17.5)
[2024-04-07 13:06] LABS: Peripheral Smear Review Scanned Result
== END 2024-04-04 23:59 | disposition home or self-care (01) ==
LOC: LAB.DROPOF 04-05 10:17
PROVIDERS: PCP Internal Medicine; Visit Provider Internal Medicine
DX: J43.9 Emphysema, unspecified (principal)
CPT/HCPCS: 85025

== ENCOUNTER 2024-10-04 15:39 | Outpatient (CLI) | payer MEDICARE, SELFPAY ==
--- NOTE | 2024-10-04 15:41 | XR_ITS ---
FINAL REPORT CLINICAL HISTORY: cough COMPARISON: 10/29/2022 FINDINGS: There are underlying emphysematous changes. No acute pulmonary density is present. No significant pleural effusion. There is no pneumothorax. The heart is normal in size. The mediastinum is unremarkable. IMPRESSION: Emphysema without acute process. Reviewed, Interpreted and Dictated by Aylin Monte MD Transcribed by Magaly Tinsley Authenticated and [facility]
== END 2024-10-04 23:59 | disposition home or self-care (01) ==
LOC: RAD 15:39
PROVIDERS: PCP Family Medicine; Visit Provider Student in an Organized Health Care Education/Training Program
DX: J43.9 Emphysema, unspecified (principal)
CPT/HCPCS: 71046

== ENCOUNTER 2024-10-22 12:09 | Outpatient (CLI) | payer MEDICARE, SELFPAY ==
[2024-10-22 18:10] LABS: Basophils # 0.1 K/mm3 (0-0.2); Basophils % 1.3 % (0.1-2.0); Eosinophils # 0.3 Kmm3 (0.0-0.4); Eosinophils % 3.1 % (0.1-12.0); Hematocrit 38.8 % (37.0-47.0); Immature Granulocytes # 0.02 10^3uL; Immature Granulocytes % 0.2 %; Lymphocytes # 2.8 K/mm3 (0.7-4.5); Lymphocytes % 33.4 % (10-50); Mean Corpuscular HGB Conc 36.1 g/dL (31.8-35.4); Mean Corpuscular Hemoglobin 37.9 pg (27.0-31.2); Mean Corpuscular Volume 105.1 fl (81-99); Monocytes # 0.9 K/mm3 (0.1-1.0); Neutrophils # 4.4 K/mm3 (1.8-7.8); Nucleated Red Blood Cells # 0 10^3/uL; Nucleated Red Blood Cells % 0 %; Platelet Count 430 K/mm3 (142-424); Red Blood Count 3.69 M/mm3 (4.20-5.40); Red Cell Distribution Width 13.9 % (11.5-17.5); White Blood Count 8.5 K/mm3 (4.8-10.8)
[2024-10-22 20:07] LABS: Albumin Level 3.4 g/dl (3.5-5.0); Albumin/Globulin Ratio 1.3 (1.1-1.8); Calcium 9.3 mg/dl (8.4-10.2); Chloride 103 mmol/L (98-107); Globulin 2.7 g/dL (1.3-3.2); Glucose 97 mg/dl (74-100); Potassium 3.5 mmoL/L (3.5-5.1); Sodium 134 mmol/L (136-145); Total Protein,Serum 6.1 g/dl (6.3-8.2)
[2024-10-22 20:28] LABS: Alanine Aminotransferase 9 U/L (12-78); Alkaline Phosphatase 89 U/L (38-126); Aspartate Amino Transferase 18 U/L (14-36); Bilirubin,Total 0.3 mg/dl (0.2-1.3); Blood Urea Nitrogen 3 mg/dl (7-17); Estimated Glomerular Filt Rate 85 ml/min (>60); GFR (African American) 102 ML/MIN (>60)
[2024-10-22 20:29] LABS: Anion Gap 8.5 mEq/L (5-15); Carbon Dioxide 26 mmol/L (22.0-30.0)
[2024-10-22 20:33] LABS: Thyroid Stimulating Hormone 5.14 uIU/mL (0.465-4.68)
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
--- OUTSIDE RECORDS SUMMARY | 2024-10-23 14:11 | XMS_ITS | Clinical Summary ---
Author Organization Healthcare Address [address] [place] [address] Care Team Providers Care Electrotype Molder Name Role Phone Magdiel Diaz MD Primary Care Provider [phone] Social History Tobacco Use Types Packs/Day Years Used Date Smoking Tobacco: Every Day Alcohol Use Standard Drinks/Week Comments Yes 0 (1 standard drink = 0.6 oz pur e alcohol) Comments Unknown Sex and Gender Information Value Date Recorded Sex Assigned at Not on file Legal Sex Female 8:16 PM EDT Gender Identity Not on file Sexual Orientation Not on file Last Filed Vital Signs Vital Sign Reading Time Taken Comments Blood Pressure - - Pulse - - Temperature - - Respiratory Rate - - Oxygen Saturation - - Inhaled Oxygen Concentration - - Weight 50.8 kg (111 lb 15.9 oz) 08/08/2013 2:27 PM EDT Height 165.1 cm (5' 5 ) 07/06/2013 4:22 PM EST Body Mass Index 18.64 07/06/2013 4:22 PM EST Plan of Treatment Not on file Care Teams Electrotype Molder Relationship Specialty Start Date End Date Magdiel Diaz MD [address] [facility] [address] [place] [address] PCP - General 09/26/20
--- OUTSIDE RECORDS SUMMARY | 2024-10-23 14:11 | XMS_ITS | Referral Summary ---
Author Organization [employer] [facility] Address [address] [place] [address] Care Team Providers Care Cardiology Teacher Name Role Phone Unavailable Primary Care Provider Unavailabl e Social History Tobacco Use Types Packs/Day Years Used Date Smoking Tobacco: Never Assessed Interpersonal Safety Answer Date Record ed Family or friends hurt you Not on file 06/03 Family or friends insult you Not on file Family or friends threaten you Not on file 0 06/03/2023 Family or friends scream or curse at you Not on file 06/03/2023 Housing Stability Answer Date Recorded Living situation today Not on file Living situation problems Not on file 2023 Food Insecurity Answer Date Recorded Food run out past 12 months Not on file 05/16 Food did not last past 12 months Not on file 06/03/2023 Employment Answer Date Recorded Help finding and keeping a job Not on file 0 06/03/2023 Family and Community Support Answer Tucker e Recorded Help with Day to Day Activities Not on file 06/03/2023 Feeling Lonely or Isolated Not on file 06/03 Educational Attainment Answer Date Rey rded Speak language other than Portuguese at home Not on file 06/03/2023 Want help with school or training Not on file 06/03/2023 Depression Answer Date Recorded PHQ-2 Risk Not on file 06/03/2023 Disabilities Answer Date Recorded Difficulty concentrating Not on file 024 Difficulty doing errands alone Not on file 0 06/03/2023 Substance Use Answer Date Recorded Used prescription meds for non-medical reasons N ot on file 06/03/2023 Used illegal drugs past 12 months Not on file 06/03/2023 Comments Unknown Sex and Gender Information Value Date Recorded Sex Assigned at Not on file Legal Sex Female 10:53 AM CDT Gender Identity Not on file Sexual Orientation Not on file Plan of Treatment Not on file
--- OUTSIDE RECORDS SUMMARY | 2024-10-23 14:11 | XMS_ITS | Clinical Summary ---
Author Organization [employer] [facility] Address [address] [place] [address] Care Team Providers Care Surgical Tech Name Role Phone Unavailable Primary Care Provider [...] Date Rey rded Speak language other than Occitan at home Not on file 06/03/2023 Want [...] Orientation Not on file Plan of Treatment Health Maintenance Due Date Last Done Comments CT Colonography 1961 Colonoscopy 1961 Colorectal Cancer Screening 1961 FOBT/FIT 1961 Fit-DNA (Cologuard) 1961 Sigmoidoscopy 1961 Depression Screening (12+) 1973 Tobacco Cessation Counseling and Screening (12+) 1973 HIV Screening 1976 Hepatitis C Screening 1979 Pap Smear 1982 Breast Cancer Screening 2001 Lipid Panel 2006 DTAP/TDAP/TD VACCINES (2 - Td or Tdap) 08/02/2006 Pneumococcal 50+ years (1 of 1 - PCV) 2011 Shingles Vaccine (Zoster) (1 of 2) 2011 COVID-19 VACCINE (3 - season) 2024, 09/03/2020 Influenza Vaccine (Season Ended) 2025 Respiratory Syncytial Virus (RSV) Adult or (1 - 1-dose 75+ series) 2036
--- OUTSIDE RECORDS SUMMARY | 2024-10-23 15:10 | XMS_ITS | CCD ---
Author Organization Unknown Care Team Providers Care Molder Offbearer Name Role Phone Unavailable Primary Care Provider Unavailabl e Unavailable Chronic Care Management Unavaila ble Summary Purpose DataExchange Insurance Providers Payer name Policy type / Coverage type Covered republican ID Effective Begin Date Effective End Date [facility] [id number] Unknown Unknown Family History Family History data not found Medication Administered No Medication Administered data Reason For Visit No Reason For Visit data Medical Equipment No Medical Equipment data Advance Directives No Advance Directive data
--- OUTSIDE RECORDS SUMMARY | 2024-10-23 15:10 | XMS_ITS | CCD ---
Author Organization Unknown Care Team Providers Care Fur Designer Name Role Phone Unavailable Primary Care Provider Unavailabl e Unavailable Chronic Care Management Unavaila ble Summary Purpose DataExchange Insurance Providers Payer name Policy type / Coverage type Covered republican ID Effective Begin Date Effective End Date [facility] [id number] Unknown Unknown Family History Family History data not found Medication Administered No Medication Administered data Reason For Visit No Reason For Visit data Medical Equipment No Medical Equipment data Advance Directives No Advance Directive data
[2024-10-24 11:07] LABS: Free T4 (Free Thyroxine) 1.35 ng/dl (0.78-2.19)
[2024-10-24 11:30] LABS: Folate 5.32 ng/mL
[2024-10-24 11:37] LABS: Vitamin B12 428 pg/mL (239-931)
== END 2024-10-22 23:59 | disposition home or self-care (01) ==
LOC: LAB.DROPOF 10-23 14:07
PROVIDERS: PCP Family Medicine; Visit Provider Family Medicine
DX: R63.4 Abnormal weight loss (principal)
CPT/HCPCS: 80053; 84443; 85025